=== PATIENT | male | born 1965 | race Caucasian/White ===

== ENCOUNTER 2018-07-31 07:09 | Emergency (ER) | payer MEDICAID ==
[~2018-07-31] VITALS: Ht 177.8 cm; Wt 133.4 kg
[~2018-07-31 07:09] MED LIST: ALBU8HFA PO; BENZ-16 PO; GUAI600T45 PO; HYDR-4353 PO; OXYC-149 PO
[2018-07-31 07:42] VITALS: BP 143/92
[2018-07-31] MEDS ORDERED: CLIN300C11 PO (08:28)
== END 2018-07-31 08:40 | disposition home or self-care (01) ==
LOC: ER 07:10
DX: K02.9 Dental caries, unspecified (principal); G89.29 Other chronic pain; Z88.0 Allergy status to penicillin; Z88.8 Allergy status to other drugs, medicaments and biological substances; Z56.0 Unemployment, unspecified; Z87.19 Personal history of other diseases of the digestive system; Z98.890 Other specified postprocedural states
CPT/HCPCS: 99283

== ENCOUNTER 2019-03-18 12:16 | Emergency (ER) | payer MEDICAID, OTHER ==
[~2019-03-18] VITALS: Ht 175.3 cm; Wt 122.7 kg
[~2019-03-18 12:16] MED LIST changes: +CLIN300C11 PO
[2019-03-18 12:17] VITALS: BP 134/94
== END 2019-03-18 13:56 ==
LOC: ER 12:17
DX: S20.211A Contusion of right front wall of thorax, initial encounter (principal); R10.9 Unspecified abdominal pain; G89.29 Other chronic pain; F10.99 Alcohol use, unspecified with unspecified alcohol-induced disorder; Z86.14 Personal history of Methicillin resistant Staphylococcus aureus infection; Z98.890 Other specified postprocedural states; Z56.0 Unemployment, unspecified; Z86.19 Personal history of other infectious and parasitic diseases; Z88.0 Allergy status to penicillin; Z88.8 Allergy status to other drugs, medicaments and biological substances; Z79.899 Other long term (current) drug therapy; V47.9XXA Unspecified car occupant injured in collision with fixed or stationary object in traffic accident, initial encounter; Y93.89 Activity, other specified; Y92.488 Other paved roadways as the place of occurrence of the external cause; Y99.8 Other external cause status; Y90.9 Presence of alcohol in blood, level not specified
CPT/HCPCS: 71045; 99283

== ENCOUNTER 2019-08-16 04:40 | Inpatient (IN) | payer MEDICARE, MEDICAID ==
[~2019-08-16] VITALS: Ht 177.8 cm; Wt 104.0 kg
[~2019-08-16 04:40] MED LIST changes: +NORepinephrine 8 MG in NS 250 ML BAG (32 mcg/ml) IV ONE
[2019-08-16] MEDS ORDERED: ondansetron/PF 4mg/2ml inj IV ONE (05:10)
[2019-08-16] MEDS ORDERED: LORazepam 2 mg/ml vial IV ONE (05:10)
[2019-08-16] MEDS ORDERED: normal saline 1000ML IV soln IVB ONE ×4 (05:10→21:15)
[2019-08-16 05:56] LABS: CHLORIDE 103 MMOL/L (99-107); POTASSIUM 3.3 MMOL/L (3.5-5.1); SODIUM 142 MMOL/L (135-145)
[2019-08-16 06:00] LABS: BASOPHILS % (AUTO) 0.1 % (0-1); EOSINOPHILS % (AUTO) 0.5 % (0-6); HEMATOCRIT 38.3 % (42.0-52.0); HEMOGLOBIN 13.3 g/dl (14.0-17.9); LYMPHOCYTES # (AUTO) 0.3 X10'3 (1.1-4.8); LYMPHOCYTES % (AUTO) 12.4 % (21-51); MEAN CORPUSCULAR HGB CONC 34.9 g/dL (33.0-36.5); MEAN CORPUSCULAR VOLUME 83.1 FL (78-98); MEAN PLATELET VOLUME 8.3 FL (7.4-10.4); MONOCYTES % (AUTO) 0.6 % (2-12); NEUTROPHILS # (AUTO) 2.1 X10'3 (1.8-7.7); NEUTROPHILS % (AUTO) 86.4 % (42-75); PLATELET COUNT 175 X10'3 (140-440); RED BLOOD COUNT 4.61 X10'6 (4.70-6.10); RED CELL DISTRIBUTION WIDTH 13.8 % (11.5-14.5); WHITE BLOOD COUNT 2.5 X10'3 (4.5-11.0)
--- NOTE | 2019-08-16 06:17 | NUR ---
sbar to sean mcgarry no questions or concerns after assuming care
--- NOTE | 2019-08-16 06:30 | NUR ---
PT ROLLING AROUND IN BED MOANING LOUDLY AND BURSTS OF UNINTELLIGABLE WORDS, OPENS EYES TO VOICE. MAINTAINING OWN AIRWAY. VSS. PER MD, NO UA NEEDED AT THIS TIME SINCE PT UNCOOPERATIVE WITH CARE.
[2019-08-16 06:33] LABS: ALANINE AMINOTRANSFERASE 32 U/L (12-78); ALBUMIN 3.2 G/DL (3.4-5.0); ALBUMIN/GLOBULIN RATIO 0.9 (1.1-1.5); ALKALINE PHOSPHATASE 168 IU/L (46-116); ANION GAP 14 (8-16); ASPARTATE AMINO TRANSFERASE 38 U/L (10-37); BLOOD UREA NITROGEN 22 MG/DL (7-18); BUN/CREATININE RATIO 14.6 (5.4-32.0); CALCIUM 8.6 MG/DL (8.5-10.1); CREATININE 1.51 MG/DL (0.60-1.10); GLUCOSE 112 MG/DL (70-104); TOTAL CARBON DIOXIDE 25.1 MMOL/L (24-32); TOTAL PROTEIN 6.9 G/DL (6.4-8.2); eGFR 48 ML/MIN
[2019-08-16 06:38] LABS: ETHANOL < 0.010 GM/DL (0.0-0.010)
[2019-08-16 07:14] LABS: GIANT PLATELET FEW; LARGE PLATELETS FEW; PLATELET ESTIMATE NORMAL; TOTAL CELLS COUNTED 100
--- NOTE | 2019-08-16 07:33 | NUR ---
NO CHANGE IN PT BEHAVOUR.
[2019-08-16] MEDS: K, MAG and/or Phos replacement - Verify level? MC SCH (08:00)
--- NOTE | 2019-08-16 08:53 | NUR ---
PT PULLED IV OUT WHILE THRASHING AROUND MD SHELDON ADVISED. PT STILL UNABLE TO FOLLOW COMMANDS AND YELLING OUT RANDOMLY.
--- NOTE | 2019-08-16 10:39 | NUR ---
PT'S CALLED TO CHECK ON PT, SHE REPORTS THAT SHE HAD TO CALL 911 DUE TO PT TAKING HEROIN. 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 WITH A FRIEND.
--- NOTE | 2019-08-16 11:03 | NUR ---
SPOKE WITH KEY ACCOUNT COORDINATOR FOR ASSISSTANCE WITH D/C.
--- NOTE | 2019-08-16 11:38 | NUR ---
NO PEOPLE AVAILABLE OR WILLING TO COME GET PT. POA NOW TO WAIT FOR PT TO BE ABLE TO WALK AND THEN CAB HOME.
--- NOTE | 2019-08-16 13:46 | NUR ---
PT STILL NOT CLEARLY VERBALIZING WORDS AND UNABLE TO SIT UP WITHOUT ASSISST.
--- NOTE | 2019-08-16 18:03 | NUR ---
CHARGE NURSE ATTEMPTED TO AMBULATE PT WITHOUT SUCCESS.
--- NOTE | 2019-08-16 19:03 | NUR ---
MD CALLED TO BEDSIDE PTS BP IS LOW AND HE IS ALOC - PT HAS PULLED OUT HIS IV AND REMOVED ALL HIS MONITORING EQUIPMENT. ATTEMPTING TO PLACE ANOTHER IV NOW. HE IS AN IV DRUG USER AND DOESN'T HAVE MUCH TO CHOOSE FROM. ONCE IV ESTABLISHED WE WILL BOLUS FLUIDS AND STRAIGHT CATH PER MD. WE WILL ALSO REDRAW LABS.
--- NOTE | 2019-08-16 19:33 | NUR ---
Gage broderick in [facility] - 08/16/19 at 2000 by ROYCE IV ATTEMPT X3 UNS
--- NOTE | 2019-08-16 19:44 | NUR ---
IV ATTEMPT X3 UNSUCCESSFUL
--- NOTE | 2019-08-16 19:59 | NUR ---
SECURITY AT BEDSIDE - PT IS YELLING I NEED ICE, I NEED ICE.
[2019-08-16] MEDS ORDERED: CefTRIAXone 2gm/D5W 50ml 50 ML IV ONE (20:30)
[2019-08-16] MEDS ORDERED: normal saline 1000ML IV soln IV ONE (20:30)
--- NOTE | 2019-08-16 20:56 | NUR ---
CHEST XRAY DON FOR LINE PLACEMENT
[2019-08-16] MEDS ORDERED: NORepinephrine 8mg/ 250ml NS 250 ML IV SCH (21:05)
[2019-08-16 21:12] LABS: PARTIAL THROMBOPLASTIN TIME 37 SECONDS (22-32)
--- NOTE | 2019-08-16 21:13 | NUR ---
NOTIFIED MD ABOUT PTS CONT' LOW BP 79/49 - ORDER FOR 1.5 ADDITIONAL LITERS OF NS THEN LEVOPHED IF BP DOESN'T COME UP.
[2019-08-16 21:39] LABS: CLARITY,URINE TURBID (Clear); COLOR,URINE YELLOW (Yellow); GLUCOSE, URINE NEGATIVE (Neg); KETONES,URINE TRACE mg/dl (Neg); LEUKOCYTE ESTERASE ,URINE NEGATIVE (Neg); NITRITES, URINE NEGATIVE (Neg); OCCULT BLOOD,URINE SMALL (Neg); PROTEIN,URINE 100 mg/dl (Neg)
[2019-08-16] MEDS: NORepinephrine 8mg/ 250ml NS 250 ML IV SCH ×2 (21:40→23:59)
[2019-08-16 21:47] LABS: UA COLLECTION TYPE FOLEY CATH
--- NOTE | 2019-08-16 21:51 | NUR ---
LAURENT CARVAJAL AT BEDSIDE FOR ADMISSION
[2019-08-16] MEDS ORDERED: acetaminophen 1,000mg/100ml IV 100 ML IV ONE (21:55)
[2019-08-16 21:56] LABS: AMORPHOUS URATES 2+; BACTERIA,URINE FEW /HPF (Neg); MUCUS STRANDS NONE SEEN /LPF (Neg); RBC,URINE 0-2 /HPF (0-2); SQUAMOUS EPITHELIAL CELL,UR FEW /LPF (FEW)
[2019-08-16 21:57] LABS: CELLULAR CAST 0-4 /LPF (NEGATIVE)
[2019-08-16 22:00] LABS: URINE AMPHETAMINE SCREEN POSITIVE (Neg); URINE BARBITUATE SCREEN NEGATIVE (Neg); URINE BENZODIAZEPINES SCREEN NEGATIVE (Neg); URINE CANNABINOID SCREEN NEGATIVE (Neg); URINE COCAINE SCREEN NEGATIVE (Neg); URINE METHADONE SCREEN NEGATIVE (Neg); URINE OPIATE SCREEN POSITIVE (Neg); URINE PHENCYCLIDINE SCREEN NEGATIVE (Neg)
[2019-08-16 22:47] LABS: BASOPHILS # (AUTO) 0.1 X10'3 (0-0.2); BASOPHILS % (AUTO) 0.8 % (0-1); EOSINOPHILS % (AUTO) 0.1 % (0-6); HEMATOCRIT 34.5 % (42.0-52.0); HEMOGLOBIN 11.9 g/dl (14.0-17.9); LYMPHOCYTES # (AUTO) 0.2 X10'3 (1.1-4.8); LYMPHOCYTES % (AUTO) 1.7 % (21-51); MEAN CORPUSCULAR HGB CONC 34.3 g/dL (33.0-36.5); MEAN CORPUSCULAR VOLUME 84.3 FL (78-98); MEAN PLATELET VOLUME 9.8 FL (7.4-10.4); MONOCYTES # (AUTO) 0.2 X10'3 (0-0.9); MONOCYTES % (AUTO) 1.5 % (2-12); NEUTROPHILS # (AUTO) 13.5 X10'3 (1.8-7.7); NEUTROPHILS % (AUTO) 95.9 % (42-75); PLATELET COUNT 101 X10'3 (140-440); RED BLOOD COUNT 4.09 X10'6 (4.70-6.10); RED CELL DISTRIBUTION WIDTH 14.2 % (11.5-14.5); WHITE BLOOD COUNT 14.1 X10'3 (4.5-11.0)
[2019-08-16] MEDS ORDERED: magnesium 2GM in 50ml NS 50 ML IV PRN (22:50)
[2019-08-16] MEDS ORDERED: magnesium 4gm in 100ml NS 100 ML IV PRN (22:50)
[2019-08-16] MEDS ORDERED: dextrose 50%-water 50ml dispensing syringe IV PRN ×2 (22:50)
[2019-08-16] MEDS ORDERED: dextrose ORAL solution 15 GM/59 ML bottle PO PRN ×2 (22:50)
[2019-08-16] MEDS ORDERED: ondansetron/PF 4mg/2ml inj IV PRN (22:50)
[2019-08-16] MEDS ORDERED: glucagon, human recombinant 1mg kit SUBCUT PRN (22:50)
[2019-08-16] MEDS ORDERED: insulin Lispro (HumaLOG) vial - multi-dose SQ SCH (22:50)
[2019-08-16] MEDS ORDERED: acetaminophen 650mg rectal suppository RC PRN (22:50)
[2019-08-16] MEDS ORDERED: ipratropium/albuterol 3ml nebule NEB PRN (22:50)
[2019-08-16] MEDS ORDERED: acetaminophen 325mg tablet PO PRN ×2 (22:50)
[2019-08-16] MEDS ORDERED: potassium Cl 20mEq/100mL bag 100 ML IV PRN ×2 (22:50)
[2019-08-16] MEDS ORDERED: MESSAGE TO PHARMACY PO ONE (22:50)
[2019-08-16 23:11] LABS: ALANINE AMINOTRANSFERASE 47 U/L (12-78); ALBUMIN 2.2 G/DL (3.4-5.0); ALBUMIN/GLOBULIN RATIO 0.7 (1.1-1.5); ALKALINE PHOSPHATASE 104 IU/L (46-116); ANION GAP 11 (8-16); ASPARTATE AMINO TRANSFERASE 62 U/L (10-37); BLOOD UREA NITROGEN 43 MG/DL (7-18); BUN/CREATININE RATIO 16.7 (5.4-32.0); CHLORIDE 109 MMOL/L (99-107); CREATININE 2.57 MG/DL (0.60-1.10); GLUCOSE 137 MG/DL (70-104); PHOSPHORUS 2.5 MG/DL (2.3-4.5); POTASSIUM 3.8 MMOL/L (3.5-5.1); SODIUM 140 MMOL/L (135-145); TOTAL CARBON DIOXIDE 20.5 MMOL/L (24-32); TOTAL PROTEIN 5.4 G/DL (6.4-8.2); eGFR 26 ML/MIN
[2019-08-16] MEDS: normal saline 1000ml 1,000 ML IV SCH (23:21)
[2019-08-16 23:26] LABS: HEMOGLOBIN A1C 5.7 % (4.5-6.2)
[2019-08-17] VITALS (13 sets, daily range): BP systolic 98–127; BP diastolic 54–69
[2019-08-17 00:26] LABS: OXYGEN SATURATION (MIXED VEN) 72.1 % (60-80); PO2 MIXED VENOUS (TEMP COR) 39.5 mmHg (35-46)
--- NOTE | 2019-08-17 00:34 | NUR ---
PT RESPONDING WELL TO LEVOPHED WITH BP OF 114/55 - LIGHTS DIMMED AND PT RESTING.
[2019-08-17] MEDS: DOBUTamine-DoBUTrex 500mg/D5W 250 ML IV SCH ×2 (00:47→20:32)
[2019-08-17 00:52] LABS: PLATELET ESTIMATE DECREASED; TOTAL CELLS COUNTED 100
--- NOTE | 2019-08-17 01:59 | NUR ---
PT AWAKENS WHEN HIS NAME IS CALLED OR WITH LIGHT SHAKING. HE MUMBLES BUT PROVIDES APPROPRIATE ANSWERS. PTS MENTATION HAS NOT CHANGED SINCE ASSUMING CARE AT 1830HRS YESTERDAY.
[2019-08-17] MEDS: NORepinephrine 8mg/ 250ml NS 250 ML IV SCH ×3 (02:33→20:14)
--- NOTE | 2019-08-17 03:19 | NUR ---
PT MOVED TO ICU BED FOR COMFORT - HIS MENTATION IS IMPROVING AND HE IS MORE CONVERSIVE BUT STILL PREFERS TO BE LEFT ALONE AND JUST SLEEP. HE MAKES APPROPRIATE STATEMENTS I.E. STATED IT WAS COLD WHEN WE TOOK HIM OUTSIDE TO CT SCAN.
--- NOTE | 2019-08-17 04:03 | NUR ---
PT AWAKE AND REQUESTING A PILLOW AND ICE
[2019-08-17 06:25] LABS: BASOPHILS % (AUTO) 0.1 % (0-1); EOSINOPHILS % (AUTO) 0 % (0-6); HEMATOCRIT 35.8 % (42.0-52.0); HEMOGLOBIN 12.3 g/dl (14.0-17.9); LYMPHOCYTES # (AUTO) 0.4 X10'3 (1.1-4.8); LYMPHOCYTES % (AUTO) 1.8 % (21-51); MEAN CORPUSCULAR HEMOGLOBIN 28.6 PG (27.0-31.0); MEAN CORPUSCULAR HGB CONC 34.3 g/dL (33.0-36.5); MEAN CORPUSCULAR VOLUME 83.4 FL (78-98); MEAN PLATELET VOLUME 9.5 FL (7.4-10.4); MONOCYTES # (AUTO) 0.7 X10'3 (0-0.9); MONOCYTES % (AUTO) 2.8 % (2-12); NEUTROPHILS # (AUTO) 22.5 X10'3 (1.8-7.7); NEUTROPHILS % (AUTO) 95.3 % (42-75); PLATELET COUNT 104 X10'3 (140-440); RED CELL DISTRIBUTION WIDTH 14.2 % (11.5-14.5); WHITE BLOOD COUNT 23.6 X10'3 (4.5-11.0)
[2019-08-17 06:36] LABS: PARTIAL THROMBOPLASTIN TIME 41 SECONDS (22-32)
[2019-08-17 06:45] LABS: ALANINE AMINOTRANSFERASE 53 U/L (12-78); ALBUMIN 2.3 G/DL (3.4-5.0); ALBUMIN/GLOBULIN RATIO 0.7 (1.1-1.5); ALKALINE PHOSPHATASE 111 IU/L (46-116); ANION GAP 14 (8-16); ASPARTATE AMINO TRANSFERASE 63 U/L (10-37); BILIRUBIN,TOTAL 2.2 MG/DL (0.1-1.0); BLOOD UREA NITROGEN 59 MG/DL (7-18); CHLORIDE 108 MMOL/L (99-107); GLUCOSE 160 MG/DL (70-104); MAGNESIUM 1.5 MG/DL (1.5-2.4); PHOSPHORUS 3.4 MG/DL (2.3-4.5); POTASSIUM 3.9 MMOL/L (3.5-5.1); SODIUM 143 MMOL/L (135-145); TOTAL PROTEIN 5.6 G/DL (6.4-8.2); eGFR 21 ML/MIN
[2019-08-17 07:16] LABS: PLATELET ESTIMATE DECREASED; TOTAL CELLS COUNTED 100
[2019-08-17] MEDS: pantoprazole 40 MG vial IV SCH (07:35)
[2019-08-17] MEDS: docusate sod 100mg capsule PO SCH ×2 (07:35→19:27)
[2019-08-17] MEDS: heparin, porcine 5000 units/ml vial SQ SCH ×2 (07:37→20:00)
[2019-08-17] MEDS: cefepime 2g/NS 100ml ADVANTAGE 100 ML IV SCH ×2 (09:19→21:00)
[2019-08-17] MEDS: K, MAG and/or Phos replacement - Verify level? MC SCH (09:25)
--- NOTE | 2019-08-17 10:51 | NUR ---
received pt report from Anisa SALDAÑA.
[2019-08-17] MEDS ORDERED: BUPR300T86 PO (12:01)
[2019-08-17] MEDS ORDERED: BUPR1FIL3 SL (12:01)
[2019-08-17] MEDS: normal saline 1000ml 1,000 ML IV SCH ×2 (12:23→23:06)
--- NOTE | 2019-08-17 18:37 | NUR ---
Problems reprioritized. Patient report given, questions answered & plan of care reviewed with Crista SALDAÑA.
[2019-08-17] MEDS: insulin glargine (Lantus) pen - multi-dose SQ SCH (21:00)
[2019-08-18] VITALS (19 sets, daily range): BP systolic 81–140; BP diastolic 42–77
[2019-08-18 01:17] LABS: BASOPHILS % (AUTO) 0.1 % (0-1); EOSINOPHILS # (AUTO) 0.2 X10'3 (0-0.9); EOSINOPHILS % (AUTO) 0.7 % (0-6); HEMOGLOBIN 11.5 g/dl (14.0-17.9); LYMPHOCYTES # (AUTO) 0.8 X10'3 (1.1-4.8); LYMPHOCYTES % (AUTO) 2.8 % (21-51); MEAN CORPUSCULAR HEMOGLOBIN 28.4 PG (27.0-31.0); MEAN CORPUSCULAR HGB CONC 33.9 g/dL (33.0-36.5); MEAN CORPUSCULAR VOLUME 83.8 FL (78-98); MONOCYTES % (AUTO) 3.3 % (2-12); NEUTROPHILS % (AUTO) 93.1 % (42-75); PLATELET COUNT 86 X10'3 (140-440); RED BLOOD COUNT 4.06 X10'6 (4.70-6.10); RED CELL DISTRIBUTION WIDTH 14.4 % (11.5-14.5)
[2019-08-18 01:25] LABS: WHITE BLOOD COUNT 30.1 X10'3 (4.5-11.0)
[2019-08-18 01:32] LABS: PARTIAL THROMBOPLASTIN TIME 47 SECONDS (22-32)
[2019-08-18 01:37] LABS: ALANINE AMINOTRANSFERASE 49 U/L (12-78); ALBUMIN 2.2 G/DL (3.4-5.0); ALBUMIN/GLOBULIN RATIO 0.7 (1.1-1.5); ALKALINE PHOSPHATASE 120 IU/L (46-116); ANION GAP 11 (8-16); ASPARTATE AMINO TRANSFERASE 51 U/L (10-37); BILIRUBIN,TOTAL 1.5 MG/DL (0.1-1.0); BLOOD UREA NITROGEN 59 MG/DL (7-18); BUN/CREATININE RATIO 20.4 (5.4-32.0); CALCIUM 7.2 MG/DL (8.5-10.1); CHLORIDE 107 MMOL/L (99-107); CREATININE 2.89 MG/DL (0.60-1.10); GLUCOSE 142 MG/DL (70-104); MAGNESIUM 1.5 MG/DL (1.5-2.4); PHOSPHORUS 2.6 MG/DL (2.3-4.5); POTASSIUM 3.8 MMOL/L (3.5-5.1); SODIUM 140 MMOL/L (135-145); TOTAL CARBON DIOXIDE 21.6 MMOL/L (24-32); TOTAL PROTEIN 5.5 G/DL (6.4-8.2); eGFR 23 ML/MIN
[2019-08-18 03:16] LABS: TOTAL CELLS COUNTED 100
[2019-08-18 03:17] LABS: PLATELET ESTIMATE DECREASED
[2019-08-18] MEDS: NORepinephrine 8mg/ 250ml NS 250 ML IV SCH (03:19)
--- NOTE | 2019-08-18 06:00 | NUR ---
Patient in room ORTHO 4015. I have received report from PIOTR Altamirano and had the opportunity to ask questions and assume patient care. Patient currently resting in bed, levo@0.3mcg/kg/min, dobutamine@ 3mcg/kg/min, NS@75ml/hr, no acute distress, will continue to monitor.
--- NOTE | 2019-08-18 06:55 | NUR ---
Problems reprioritized. Patient report given, questions answered & plan of care reviewed with .
[2019-08-18] MEDS: docusate sod 100mg capsule PO SCH ×2 (07:57→20:00)
[2019-08-18] MEDS: pantoprazole 40 MG vial IV SCH (07:57)
[2019-08-18] MEDS: cefepime 2g/NS 100ml ADVANTAGE 100 ML IV SCH (07:57)
[2019-08-18] MEDS: heparin, porcine 5000 units/ml vial SQ SCH (08:00)
[2019-08-18] MEDS: K, MAG and/or Phos replacement - Verify level? MC SCH (08:00)
[2019-08-18] MEDS ORDERED: buprenorphine/naloxone 8MG-2MG SUBlingual film SL SCH (08:00)
[2019-08-18] MEDS ORDERED: NICO-687 TOP (08:26)
[2019-08-18] MEDS: nicotine 21mg patch - 24 hr TD SCH (09:44)
[2019-08-18] MEDS: buprenorphine/naloxone 8MG-2MG SUBlingual film SL SCH ×3 (10:17→22:06)
[2019-08-18] MEDS: normal saline 1000ml 1,000 ML IV SCH (14:47)
--- NOTE | 2019-08-18 15:30 | NUR ---
Received order to transfer patient to ortho/neuro rm 4015, extended PIV placed by PICC nurse in L forearm, fluids transferred to extended PIV NS@75ml/her, RIJ DC'd, hemostasis achieved, patient tolerated well. Patient belongings gathered and transferred with patient, Report called to unit, VSS at time of transfer. Patient was able to ambulate to wheelchair and was taken up by nurse aide/sitter.
--- NOTE | 2019-08-18 16:07 | NUR ---
Patient in room ORTHO 4015. I have received report from Rochelle and had the opportunity to ask questions and assume patient care.
--- NOTE | 2019-08-18 18:16 | NUR ---
Problems reprioritized. Patient report given, questions answered & plan of care reviewed with Joni SALDAÑA.
[2019-08-18] MEDS: insulin glargine (Lantus) pen - multi-dose SQ SCH (21:00)
[2019-08-18] MEDS: lactobacillus rhamnosus 10,000 MMU CELLS/CAPSULE PO SCH (22:05)
[2019-08-18] MEDS ORDERED: lactulose 20gm/30ml cup PO PRN (22:50)
[2019-08-19 02:22] VITALS: BP 94/55
[2019-08-19] MEDS: normal saline 1000ml 1,000 ML IV SCH (04:07)
[2019-08-19 05:00] VITALS: BP 111/62
[2019-08-19 07:14] LABS: BASOPHILS % (AUTO) 0.1 % (0-1); EOSINOPHILS % (AUTO) 0.1 % (0-6); HEMATOCRIT 32.4 % (42.0-52.0); HEMOGLOBIN 11.2 g/dl (14.0-17.9); LYMPHOCYTES # (AUTO) 1.2 X10'3 (1.1-4.8); LYMPHOCYTES % (AUTO) 5.8 % (21-51); MEAN CORPUSCULAR HEMOGLOBIN 28.8 PG (27.0-31.0); MEAN CORPUSCULAR HGB CONC 34.5 g/dL (33.0-36.5); MEAN CORPUSCULAR VOLUME 83.5 FL (78-98); MEAN PLATELET VOLUME 10.4 FL (7.4-10.4); MONOCYTES # (AUTO) 0.6 X10'3 (0-0.9); MONOCYTES % (AUTO) 2.8 % (2-12); NEUTROPHILS # (AUTO) 18.6 X10'3 (1.8-7.7); NEUTROPHILS % (AUTO) 91.2 % (42-75); PLATELET COUNT 57 X10'3 (140-440); RED BLOOD COUNT 3.88 X10'6 (4.70-6.10); RED CELL DISTRIBUTION WIDTH 14.6 % (11.5-14.5); WHITE BLOOD COUNT 20.4 X10'3 (4.5-11.0)
[2019-08-19 07:24] LABS: PARTIAL THROMBOPLASTIN TIME 42 SECONDS (22-32)
[2019-08-19] MEDS: cefepime 1GM in D5W 50mL 50 ML IV SCH (07:39)
[2019-08-19 07:42] LABS: ALANINE AMINOTRANSFERASE 43 U/L (12-78); ALBUMIN 2.1 G/DL (3.4-5.0); ALBUMIN/GLOBULIN RATIO 0.6 (1.1-1.5); ANION GAP 10 (8-16); ASPARTATE AMINO TRANSFERASE 39 U/L (10-37); BILIRUBIN,TOTAL 1.1 MG/DL (0.1-1.0); BLOOD UREA NITROGEN 43 MG/DL (7-18); BUN/CREATININE RATIO 23.5 (5.4-32.0); CALCIUM 8.1 MG/DL (8.5-10.1); CHLORIDE 110 MMOL/L (99-107); CREATININE 1.83 MG/DL (0.60-1.10); GLUCOSE 84 MG/DL (70-104); MAGNESIUM 1.7 MG/DL (1.5-2.4); PHOSPHORUS 2.4 MG/DL (2.3-4.5); POTASSIUM 3.9 MMOL/L (3.5-5.1); SODIUM 142 MMOL/L (135-145); TOTAL CARBON DIOXIDE 21.6 MMOL/L (24-32); TOTAL PROTEIN 5.4 G/DL (6.4-8.2); eGFR 39 ML/MIN
[2019-08-19] MEDS: pantoprazole 40 MG vial IV SCH (07:42)
[2019-08-19] MEDS: buprenorphine/naloxone 8MG-2MG SUBlingual film SL SCH ×3 (07:44→21:20)
[2019-08-19] MEDS: docusate sod 100mg capsule PO SCH ×2 (07:44→21:20)
[2019-08-19] MEDS: lactobacillus rhamnosus 10,000 MMU CELLS/CAPSULE PO SCH ×2 (07:44→20:00)
[2019-08-19] MEDS: nicotine 21mg patch - 24 hr TD SCH (07:45)
[2019-08-19] MEDS ORDERED: nicotine 21mg patch - 24 hr TD SCH (08:00)
[2019-08-19 08:07] LABS: ALKALINE PHOSPHATASE 158 IU/L (46-116)
[2019-08-19 10:00] VITALS: BP 117/70
--- NOTE | 2019-08-19 14:34 | NUR ---
Patient asking if he can be discharged stating he has "places to be" will notify .
[2019-08-19] MEDS ORDERED: LIDOcaine Viscous 15ml cup MM PRN (17:10)
[2019-08-19 18:00] VITALS: BP 131/73
--- NOTE | 2019-08-19 18:31 | NUR ---
Problems reprioritized. Patient report given, questions answered & plan of care reviewed with Joni SALDAÑA.
--- NOTE | 2019-08-19 19:00 | NUR ---
Patient in room ORTHO 4015. I have received report from Navneet SALDAÑA and had the opportunity to ask questions and assume patient care.
[2019-08-19] MEDS: insulin glargine (Lantus) pen - multi-dose SQ SCH (21:00)
[2019-08-19] MEDS: DOCOSANOL 2 GM CREAM..G. TP SCH ×2 (21:25→22:00)
[2019-08-20 06:00] VITALS: BP 127/73
[2019-08-20] MEDS: DOCOSANOL 2 GM CREAM..G. TP SCH ×5 (06:15→22:00)
[2019-08-20 06:30] LABS: BASOPHILS % (AUTO) 0.3 % (0-1); EOSINOPHILS # (AUTO) 0.1 X10'3 (0-0.9); EOSINOPHILS % (AUTO) 0.9 % (0-6); HEMATOCRIT 34.8 % (42.0-52.0); HEMOGLOBIN 11.8 g/dl (14.0-17.9); LYMPHOCYTES # (AUTO) 1.2 X10'3 (1.1-4.8); LYMPHOCYTES % (AUTO) 13.1 % (21-51); MEAN CORPUSCULAR HEMOGLOBIN 28.5 PG (27.0-31.0); MEAN CORPUSCULAR HGB CONC 34.1 g/dL (33.0-36.5); MEAN CORPUSCULAR VOLUME 83.7 FL (78-98); MEAN PLATELET VOLUME 10.8 FL (7.4-10.4); MONOCYTES # (AUTO) 0.7 X10'3 (0-0.9); MONOCYTES % (AUTO) 8.1 % (2-12); NEUTROPHILS # (AUTO) 6.8 X10'3 (1.8-7.7); NEUTROPHILS % (AUTO) 77.6 % (42-75); PLATELET COUNT 55 X10'3 (140-440); RED BLOOD COUNT 4.15 X10'6 (4.70-6.10); RED CELL DISTRIBUTION WIDTH 14.4 % (11.5-14.5); WHITE BLOOD COUNT 8.8 X10'3 (4.5-11.0)
[2019-08-20 06:33] LABS: PARTIAL THROMBOPLASTIN TIME 33 SECONDS (22-32)
[2019-08-20 06:54] LABS: ALANINE AMINOTRANSFERASE 37 U/L (12-78); ALBUMIN/GLOBULIN RATIO 0.6 (1.1-1.5); ALKALINE PHOSPHATASE 208 IU/L (46-116); ANION GAP 10 (8-16); BILIRUBIN,TOTAL 0.8 MG/DL (0.1-1.0); BLOOD UREA NITROGEN 35 MG/DL (7-18); CHLORIDE 110 MMOL/L (99-107); GLUCOSE 101 MG/DL (70-104); MAGNESIUM 1.6 MG/DL (1.5-2.4); SODIUM 143 MMOL/L (135-145); TOTAL CARBON DIOXIDE 22.8 MMOL/L (24-32); TOTAL PROTEIN 5.6 G/DL (6.4-8.2); eGFR 53 ML/MIN
[2019-08-20 06:55] LABS: ASPARTATE AMINO TRANSFERASE 35 U/L (10-37); PHOSPHORUS 2.6 MG/DL (2.3-4.5); POTASSIUM 4.4 MMOL/L (3.5-5.1)
[2019-08-20] MEDS ORDERED: pantoprazole 40mg Tablet.DR PO SCH (07:30)
[2019-08-20] MEDS: nicotine 21mg patch - 24 hr TD SCH (08:09)
[2019-08-20] MEDS: lactobacillus rhamnosus 10,000 MMU CELLS/CAPSULE PO SCH ×2 (08:10→20:16)
[2019-08-20] MEDS: docusate sod 100mg capsule PO SCH ×2 (08:10→20:17)
[2019-08-20] MEDS: cefepime 1GM in D5W 50mL 50 ML IV SCH (08:10)
[2019-08-20] MEDS: buprenorphine/naloxone 8MG-2MG SUBlingual film SL SCH ×3 (08:10→20:17)
[2019-08-20 09:09] LABS: TOTAL CELLS COUNTED 100
[2019-08-20 09:11] LABS: PLATELET ESTIMATE DECREASED
[2019-08-20 10:00] VITALS: BP 122/61
[2019-08-20 18:00] VITALS: BP 136/82
--- NOTE | 2019-08-20 18:20 | NUR ---
Received patient report from PIOTR Pastrana. Assumed patient care.
[2019-08-20 21:29] VITALS: BP 128/64
[2019-08-21 06:00] VITALS: BP 128/71
--- NOTE | 2019-08-21 06:00 | NUR ---
Patient report given, questions answered and plan of care reviewed with PIOTR Pastrana.
[2019-08-21] MEDS: DOCOSANOL 2 GM CREAM..G. TP SCH (06:48)
--- NOTE | 2019-08-21 07:20 | NUR ---
Entered pts room to find him dressed in his civilian clothes. Pt stated "I want to go outside for a little bit and smoke, then I'll come back." Informed pt that he cannot leave the floor or he is considered "Leaving against medical advice." Pt states "That's fine." Pt asked me to call his and let her know that he is going to [place]. Removed midline IV in LFA and pressure held x7 minutes. No redness/swelling at insertion site. Pt removed Habitrol patch and it was located on the bedside table. Pt removed Telemetry unit which was cleaned by Alfonzo Davila RN. TC placed to Dr. Jacobo at 0720 to inform him that pt was leaving AMA and he stated he was going to [place] to get some help. Escorted pt via ambulation to front parking lot. Kiran, Director Ortho/Neuro informed pt left AMA.
--- NOTE | 2019-08-21 08:02 | NUR ---
Attempted to call pts [employer] at [phone] with no answer and was unable to leave a message as "mailbox had not been set up." Will try again later today.
== END 2019-08-21 07:25 | disposition left against medical advice (07) | DRG 917 ==
LOC: ER 04:40 → ED HOLD 23:14 → EDBEDREQTM 08-17 08:13 → CICU 2S 08-17 11:02 → ORTHO 4S 08-18 15:35
PROVIDERS: ADMIT Internal Medicine Critical Care Medicine
DX: T40.1X1A Poisoning by heroin, accidental (unintentional), initial encounter (principal); A41.9 Sepsis, unspecified organism; R65.21 Severe sepsis with septic shock; J69.0 Pneumonitis due to inhalation of food and vomit; N19 Unspecified kidney failure; B19.20 Unspecified viral hepatitis C without hepatic coma; F11.90 Opioid use, unspecified, uncomplicated; G89.29 Other chronic pain; M54.9 Dorsalgia, unspecified; Z88.0 Allergy status to penicillin; Z88.8 Allergy status to other drugs, medicaments and biological substances; Y92.89 Other specified places as the place of occurrence of the external cause; Z79.899 Other long term (current) drug therapy
CPT/HCPCS: 36415; 70450; 71045; 76937; 80053; 80305; 80320; 81001; 82810; 82948; 83036; 83605; 83735; 83880; 84100; 84145; 85025; 85610; 85730; 87040; 87081; 87088; 93005; 93306; 94760; 96365; 96375; 97116; 97161; 99285; C9113; G0378; J0131; J0692; J0696; J1250; J1644; J1815; J2060; J2405; J7030

== ENCOUNTER 2019-10-07 06:22 | Emergency (ER) | payer MEDICARE, MEDICAID ==
[~2019-10-07] VITALS: Ht 175.3 cm; Wt 98.2 kg
[~2019-10-07 06:22] MED LIST changes: -ALBU8HFA PO; -BENZ-16 PO; +BUPR1FIL3 SL; +BUPR300T86 PO; -CLIN300C11 PO; -GUAI600T45 PO; -HYDR-4353 PO; +NICO-687 TOP; -NORepinephrine 8 MG in NS 250 ML BAG (32 mcg/ml) IV ONE; -OXYC-149 PO
[2019-10-07] MEDS ORDERED: LIDOcaine 1% W/epiNEPHrine 1:200,000 10ml vial IJ ONE (07:20)
[2019-10-07] MEDS ORDERED: ethyl chloride 103.5ml spray TP ONE (07:35)
[2019-10-07] MEDS ORDERED: HYDROcodone/acetaminophen 10/325mg tab PO ONE (08:10)
[2019-10-07] MEDS ORDERED: vancomycin/NS 1 GM ADD-VANTAGE 250 ML IV ONE (08:10)
[2019-10-07] MEDS ORDERED: ketorolac trometh. 30mg/ml inj. IV ONE (08:30)
[2019-10-07] MEDS ORDERED: DOXY-1 PO (09:07)
--- NOTE | 2019-10-07 11:25 | NUR ---
Wound repacked by Dr. Carpenter due to excessive drainage. Patient deferred treatment for left palm abcess at this time. Abd pad and tape applied.
[2019-10-07 11:34] VITALS: BP 99/55
[2019-10-08] MEDS ORDERED: DOXY100C76 PO (15:21)
== END 2019-10-07 11:36 | disposition home or self-care (01) ==
LOC: ER 06:23
DX: L02.31 Cutaneous abscess of buttock (principal); G89.29 Other chronic pain; F17.200 Nicotine dependence, unspecified, uncomplicated; F11.90 Opioid use, unspecified, uncomplicated; Z86.19 Personal history of other infectious and parasitic diseases; Z86.14 Personal history of Methicillin resistant Staphylococcus aureus infection; Z98.890 Other specified postprocedural states; Z56.0 Unemployment, unspecified; Z88.8 Allergy status to other drugs, medicaments and biological substances; Z88.0 Allergy status to penicillin; Z79.899 Other long term (current) drug therapy
CPT/HCPCS: 10060; 87070; 87186; 96365; 96375; 99284; J1885; J3370

== ENCOUNTER 2019-10-08 14:05 | Emergency (ER) | payer MEDICARE, MEDICAID ==
[~2019-10-08] VITALS: Ht 175.3 cm; Wt 97.0 kg
[~2019-10-08 14:05] MED LIST changes: +DOXY-1 PO
--- NOTE | 2019-10-08 14:20 | NUR ---
Pt returned as instructed for wound recheck. Dr Carpenter reassessed. She is going off shift and will report off appropriately. Wound packing and dressing set up bedside.
[2019-10-08 14:59] VITALS: BP 117/65
[2019-10-08] MEDS ORDERED: DOXY100C76 PO (15:21)
== END 2019-10-08 15:38 | disposition home or self-care (01) ==
LOC: ER 14:05
DX: L02.31 Cutaneous abscess of buttock (principal); G89.29 Other chronic pain; F11.90 Opioid use, unspecified, uncomplicated; Z86.19 Personal history of other infectious and parasitic diseases; Z86.14 Personal history of Methicillin resistant Staphylococcus aureus infection; Z98.890 Other specified postprocedural states; Z56.0 Unemployment, unspecified; Z88.0 Allergy status to penicillin; Z88.8 Allergy status to other drugs, medicaments and biological substances; Z79.899 Other long term (current) drug therapy
CPT/HCPCS: 99283

== ENCOUNTER 2020-02-08 13:04 | Emergency (ER) | payer MEDICARE, MEDICAID ==
[~2020-02-08] VITALS: Ht 172.7 cm; Wt 3.0 kg
[~2020-02-08 13:04] MED LIST changes: -DOXY-1 PO
[2020-02-08 13:06] VITALS: BP 109/57
[2020-02-08] MEDS ORDERED: SULF1TAB49 PO (13:17)
[2020-02-08] MEDS ORDERED: CEPH500C5 PO (13:17)
[2020-02-08] MEDS ORDERED: LACT1CAP60 PO (13:17)
== END 2020-02-08 13:21 | disposition home or self-care (01) ==
LOC: ER 13:04
DX: L02.415 Cutaneous abscess of right lower limb (principal); G89.29 Other chronic pain; F11.90 Opioid use, unspecified, uncomplicated; Z86.19 Personal history of other infectious and parasitic diseases; Z00.00 Encounter for general adult medical examination without abnormal findings; Z86.14 Personal history of Methicillin resistant Staphylococcus aureus infection; Z98.890 Other specified postprocedural states; Z72.89 Other problems related to lifestyle; Z56.0 Unemployment, unspecified; Z88.0 Allergy status to penicillin; Z88.8 Allergy status to other drugs, medicaments and biological substances; Z79.899 Other long term (current) drug therapy
CPT/HCPCS: 99283

== ENCOUNTER 2020-04-10 21:02 | Emergency (ER) | payer MEDICARE, MEDICAID ==
[~2020-04-10] VITALS: Ht 175.3 cm; Wt 92.8 kg
[~2020-04-10 21:02] MED LIST changes: +CEPH500C5 PO; +LACT1CAP60 PO
[2020-04-10 21:09] VITALS: BP 113/69
== END 2020-04-10 22:23 | disposition home or self-care (01) ==
LOC: ER 21:02
DX: S80.02XA Contusion of left knee, initial encounter (principal); M25.562 Pain in left knee; G89.29 Other chronic pain; F11.90 Opioid use, unspecified, uncomplicated; Z86.19 Personal history of other infectious and parasitic diseases; Z86.14 Personal history of Methicillin resistant Staphylococcus aureus infection; Z98.890 Other specified postprocedural states; Z72.89 Other problems related to lifestyle; Z56.0 Unemployment, unspecified; Z88.0 Allergy status to penicillin; Z88.8 Allergy status to other drugs, medicaments and biological substances; Z79.2 Long term (current) use of antibiotics; Z79.899 Other long term (current) drug therapy; X58.XXXA Exposure to other specified factors, initial encounter; Y93.89 Activity, other specified; Y92.89 Other specified places as the place of occurrence of the external cause; Y99.8 Other external cause status
CPT/HCPCS: 73564; 99284

== ENCOUNTER 2021-07-06 08:41 | Emergency (ER) | payer MEDICARE, MEDICAID ==
[~2021-07-06] VITALS: Ht 175.3 cm; Wt 95.5 kg
[~2021-07-06 08:41] MED LIST changes: -CEPH500C5 PO
[2021-07-06 08:55] VITALS: BP 140/108
== END 2021-07-06 09:48 | disposition left against medical advice (07) ==
LOC: ER 08:42
DX: R07.89 Other chest pain (principal); Z53.21 Procedure and treatment not carried out due to patient leaving prior to being seen by health care provider

== ENCOUNTER 2021-07-30 13:20 | Emergency (ER) | payer MEDICARE, MEDICAID ==
[~2021-07-30] VITALS: Ht 175.3 cm; Wt 93.6 kg
[2021-07-30 13:32] VITALS: BP 133/73
[2021-07-30] MEDS ORDERED: PRED20TA PO (13:36)
[2021-07-30] MEDS ORDERED: ALBU6.7H9 INH (13:36)
[2021-07-30] MEDS ORDERED: CEPH250T PO (13:36)
[2021-07-30] MEDS ORDERED: DOXY100C76 PO (13:36)
== END 2021-07-30 15:13 | disposition home or self-care (01) ==
LOC: ER 13:20
DX: J20.9 Acute bronchitis, unspecified (principal); R05.9 Cough, unspecified; G89.29 Other chronic pain; F11.90 Opioid use, unspecified, uncomplicated; Z71.6 Tobacco abuse counseling; Z86.19 Personal history of other infectious and parasitic diseases; Z86.14 Personal history of Methicillin resistant Staphylococcus aureus infection; Z98.890 Other specified postprocedural states; Z72.89 Other problems related to lifestyle; Z56.0 Unemployment, unspecified; Z88.0 Allergy status to penicillin; Z88.8 Allergy status to other drugs, medicaments and biological substances; Z79.2 Long term (current) use of antibiotics; Z79.899 Other long term (current) drug therapy
CPT/HCPCS: 71045; 99283; 99406

== ENCOUNTER 2024-02-15 19:34 | Emergency (ER) | payer BC, MEDICAID ==
[~2024-02-15] VITALS: Ht 172.7 cm; Wt 109.1 kg
[~2024-02-15 19:34] MED LIST changes: +ALBU6.7H14 INH; +BUPR-564 PO; -BUPR300T86 PO
== END 2024-02-15 20:01 | disposition left against medical advice (07) ==
LOC: ER 19:35
DX: T40.411A Poisoning by fentanyl or fentanyl analogs, accidental (unintentional), initial encounter (principal); G89.29 Other chronic pain; M54.9 Dorsalgia, unspecified; F11.90 Opioid use, unspecified, uncomplicated; Z88.0 Allergy status to penicillin; Z88.8 Allergy status to other drugs, medicaments and biological substances; Z79.899 Other long term (current) drug therapy; Z86.19 Personal history of other infectious and parasitic diseases; Z98.890 Other specified postprocedural states; Z72.89 Other problems related to lifestyle; Z56.0 Unemployment, unspecified; Y92.89 Other specified places as the place of occurrence of the external cause
CPT/HCPCS: 99283